=== PATIENT | female | born 1960 | race Caucasian/White ===

== ENCOUNTER 2024-07-29 21:11 | Emergency (ER) | payer SELFPAY ==
[~2024-07-29] VITALS: Ht 157.5 cm; Wt 81.8 kg
[2024-07-29 22:03] VITALS: BP 175/104; PULSE 94; RESP 19; TEMP 98.3; O2SAT 98
[2024-07-29] MEDS: ACETAMINOPHEN 500 MG TABLET PO ONE (23:34)
[2024-07-29] MEDS ORDERED: IBUP-1492 PO (23:44)
[2024-07-29] MEDS ORDERED: ACET-3385 PO (23:44)
== END 2024-07-30 00:42 | disposition home or self-care (01) ==
LOC: EMS 21:11
DX: S52.502A Unspecified fracture of the lower end of left radius, initial encounter for closed fracture (principal); M25.531 Pain in right wrist; Z88.0 Allergy status to penicillin; Z90.49 Acquired absence of other specified parts of digestive tract; Z98.890 Other specified postprocedural states; W19.XXXA Unspecified fall, initial encounter; Y93.89 Activity, other specified; Y92.89 Other specified places as the place of occurrence of the external cause; Y99.8 Other external cause status
CPT/HCPCS: 99283

== ENCOUNTER 2024-08-12 08:47 | Emergency (ER) | payer BC, MEDICAID ==
[~2024-08-12] VITALS: Ht 157.5 cm; Wt 80.9 kg
[~2024-08-12 08:47] MED LIST: ACET-3385 PO; IBUP-1492 PO
[2024-08-12 08:50] VITALS: TEMP 98
[2024-08-12 13:30] VITALS: BP 150/99; PULSE 95; RESP 16; O2SAT 98
== END 2024-08-12 14:54 | disposition home or self-care (01) ==
LOC: EMS 08:49
DX: S52.502A Unspecified fracture of the lower end of left radius, initial encounter for closed fracture (principal); Z88.0 Allergy status to penicillin; Z90.49 Acquired absence of other specified parts of digestive tract; Z98.890 Other specified postprocedural states; W19.XXXA Unspecified fall, initial encounter; Y93.89 Activity, other specified; Y92.89 Other specified places as the place of occurrence of the external cause; Y99.8 Other external cause status
CPT/HCPCS: 99283